=== PATIENT | female | born 1980 | race Caucasian/White ===

== ENCOUNTER 2021-06-09 08:53 | Emergency (ER) | payer OTHER ==
[2021-06-09] MEDS ORDERED: ONDANSETRON ODT4 MG PO (10:21)
== END 2021-06-09 11:14 | disposition home or self-care (01) ==
LOC: FER 08:53
DX: S00.83XA Contusion of other part of head, initial encounter (principal); Z88.1 Allergy status to other antibiotic agents; V89.2XXA Person injured in unspecified motor-vehicle accident, traffic, initial encounter
CPT/HCPCS: 99283